=== PATIENT | male | born 1975 | race Caucasian/White ===

== ENCOUNTER 2024-01-15 06:21 | Day surgery (SDC) | payer BC, OTHER ==
[2024-01-15] MEDS: Lactated Ringers 1,000 ML IV SCH (06:39)
[2024-01-15] MEDS ORDERED: propofoL 50 ML ONE (07:31)
[2024-01-15] MEDS ORDERED: Propofol 200 MG/20 ML SDV ONE (08:35)
== END 2024-01-15 09:11 | disposition home or self-care (01) ==
LOC: MW.SDS 06:21
PROVIDERS: ATTEND Surgery
DX: Z12.11 Encounter for screening for malignant neoplasm of colon (principal); D12.2 Benign neoplasm of ascending colon; D12.6 Benign neoplasm of colon, unspecified; F17.200 Nicotine dependence, unspecified, uncomplicated; K63.5 Polyp of colon; Z79.899 Other long term (current) drug therapy; Z80.0 Family history of malignant neoplasm of digestive organs
CPT/HCPCS: 45380; 45385; J2704; J7120; 00811